=== PATIENT | male | born 1995 | race Caucasian/White ===

== ENCOUNTER 2021-01-16 21:54 | Observation (INO) ==
[2021-01-17] MEDS ORDERED: *HR* Propofol 200 MG/20 ML VIAL IVP ONE ×2 (01:01→15:10)
[2021-01-17] MEDS ORDERED: Lidocaine -MPF 2% 5 ML VIAL ONE ×2 (01:02→15:10)
[2021-01-17] MEDS ORDERED: Lidocaine HCL 4 ML Topical Solution (Laryng-O-Jet Kit Sterile Pak) TP ONE (01:04)
[2021-01-17] MEDS ORDERED: Ondansetron 4 MG/2 ML VIAL IVP PRN ×2 (02:25→15:11)
[2021-01-17] MEDS ORDERED: 0.9 % Sodium Chloride 1,000 ML IVC SCH (02:30)
[2021-01-17] MEDS ORDERED: Pantoprazole 40 MG VIAL IVP SCH (09:00)
[2021-01-17] MEDS ORDERED: Lidocaine -MPF 4% 5 ML AMPUL ONE (15:10)
[2021-01-17] MEDS ORDERED: *HR* Succinylcholine 200 MG/10 ML VIAL IVP ONE (15:10)
[2021-01-17] MEDS ORDERED: *HR* FentaNYL (PF) 100 MCG/2 ML VIAL ONE (15:10)
[2021-01-17] MEDS ORDERED: *HR* HYDROmorphone PF 0.5 MG/0.5 ML SYRINGE IVP PRN (15:11)
[2021-01-17] MEDS ORDERED: Promethazine 6.25 MG in Water for inj. (sterile) 20 ML IVPB PRN (15:11)
[2021-01-17] MEDS ORDERED: *HR* OxyCODONE Immed Rel 5 MG TABLET PO PRN (15:11)
[2021-01-17 20:22] VITALS: BP 123/76; PULSE 94; TEMP 98.3; O2SAT 96
== END 2021-01-17 20:32 | disposition home or self-care (01) ==
LOC: 4WAOSI 21:54 → EMEROOARM 21:54 → 4WAOSI 01-17 01:05
PROVIDERS: ADMIT Surgery; ATTEND Surgery
PROC: ENDOEFB (2021-01-17 01:15)